=== PATIENT | male | born 2000 | race Caucasian/White ===

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

== ENCOUNTER 2023-12-15 17:10 | Emergency (ER) | payer OTHER, MEDICAID, SELFPAY ==
[2023-12-15 17:20] VITALS: BP 150/96; PULSE 69; RESP 17; TEMP 36.6; O2SAT 98; BMI 27.1
--- NOTE | 2023-12-15 17:23 | DI.RAD.S_ITS ---
PROCEDURE: XR CHEST 2V INDICATIONS: chest TECHNIQUE: 2 views of the chest were acquired. COMPARISON: [facility], , CHEST 2 VIEW, 12/05/2015, 14:59. FINDINGS: Surgical changes and devices: None. Lungs and pleura: Lungs are clear. No pleural effusions or pneumothorax. Mediastinum: Mediastinal contours are normal. Heart size is normal. Bones and chest wall: No suspicious bony abnormalities. Soft tissues appear unremarkable. IMPRESSION: No acute cardiopulmonary abnormality is seen. Dictated by: Dayanara Caldwell M.D. on 12/15/2023 at 19:40 Approved by: Dayanara Caldwell M.D. on 12/15/2023 at 19:41
== END 2023-12-15 19:58 | disposition left against medical advice (07) ==
PROVIDERS: Emergency Provider Emergency Medicine
DX: R07.9 Chest pain, unspecified (principal)
CPT/HCPCS: 71046; 93005; 93010; 99283